=== PATIENT | female | born 1940 | race Caucasian/White ===

== ENCOUNTER 2020-01-05 08:16 | Day surgery (SDC) | payer MEDICARE ==
[2019-12-28 11:59] LABS: BASOPHILS % (AUTO) 0.2 % (0-1); EOSINOPHILS # (AUTO) 0.1 X10'3 (0-0.9); LYMPHOCYTES # (AUTO) 1.9 X10'3 (1.1-4.8); LYMPHOCYTES % (AUTO) 28.2 % (21-51); MEAN CORPUSCULAR HEMOGLOBIN 29.5 PG (27.0-31.0); MEAN CORPUSCULAR HGB CONC 33.1 g/dL (33.0-36.5); MEAN CORPUSCULAR VOLUME 89.1 FL (78-98); MEAN PLATELET VOLUME 8.1 FL (7.4-10.4); MONOCYTES # (AUTO) 0.6 X10'3 (0-0.9); MONOCYTES % (AUTO) 9.7 % (2-12); NEUTROPHILS # (AUTO) 3.9 X10'3 (1.8-7.7); NEUTROPHILS % (AUTO) 59.9 % (42-75); PRE OP HEMATOCRIT 39.2 % (35.0-45.0); PRE OP PLATELET COUNT 323 X10'3 (140-440); RED BLOOD COUNT 4.41 X10'6 (4.20-5.60); RED CELL DISTRIBUTION WIDTH 14.3 % (11.5-14.5)
[2019-12-28 12:03] LABS: CLARITY,URINE SLIGHTLY CLOUDY (Clear); COLOR,URINE STRAW (Yellow); GLUCOSE, URINE NEGATIVE (Neg); KETONES,URINE NEGATIVE (Neg); LEUKOCYTE ESTERASE ,URINE SMALL (Neg); NITRITES, URINE NEGATIVE (Neg); OCCULT BLOOD,URINE TRACE-INTACT (Neg); PH,URINE 5.5 (4.8-8.0); PROTEIN,URINE NEGATIVE (Neg); UROBILINOGEN,URINE 0.2 E.U/dL (0.2-1.0)
[2019-12-28 12:22] LABS: UA COLLECTION TYPE CLN CATCH MIDSTREAM
[2019-12-28 12:23] LABS: ALBUMIN 3.7 G/DL (3.4-5.0); ALBUMIN/GLOBULIN RATIO 1.1 (1.1-1.5); ALKALINE PHOSPHATASE 98 IU/L (46-116); BLOOD UREA NITROGEN 11 MG/DL (7-18); BUN/CREATININE RATIO 11.8 (6.6-38.0); CALCIUM 8.9 MG/DL (8.5-10.1); CHLORIDE 103 MMOL/L (99-107); CREATININE 0.93 MG/DL (0.40-0.90); PRE OP ALT 24 U/L (30-65); PRE OP ANION GAP 9 (8-16); PRE OP AST 23 U/L (10-37); PRE OP BILIRUB, TOTAL 0.7 MG/DL (0.0-1.0); PRE OP GLUCOSE 93 MG/DL (70-104); PRE OP POTASSIUM 3.4 MMOL/L (3.4-5.1); PRE OP SODIUM 142 MMOL/L (135-145); TOTAL CARBON DIOXIDE 30.3 MMOL/L (24-32); eGFR 58 ML/MIN
[2019-12-28 12:27] LABS: BACTERIA,URINE FEW /HPF (Neg); RBC,URINE 0-2 /HPF (0-2); SQUAMOUS EPITHELIAL CELL,UR MANY /LPF (FEW); TRANSITIONAL EPI CELLS,URINE FEW /HPF; WBC CLUMPS,URINE FEW /HPF (NEGATIVE); WBC,URINE 0-4 /HPF (0-4)
[2020-01-05] VITALS (11 sets, daily range): BP systolic 122–163; BP diastolic 62–87
[~2020-01-05] VITALS: Ht 170.2 cm; Wt 70.3 kg
[~2020-01-05 08:16] MED LIST: HCTZ25T PO; IRBE150T51 PO; LEVO100T9 PO; METO50TA7 PO; clindamycin-Cleocin 900mg/D5W 50 ML IV ONE; famotidine 20mg tablet PO ONE; gentamicin inj 350 MG in normal saline 100ml IV soln 91.25 ML IV ONE; ringers solution, lacted 1,000 ML IV SCH
[2020-01-05] MEDS ORDERED: aprepitant 40mg capsule PO ONE (11:53)
[2020-01-05] MEDS ORDERED: BUPIVAcaine/PF 2.5 mg/ml (0.25%) 30ml vial ONE (12:06)
[2020-01-05] MEDS ORDERED: sevoflurane 250ml liquid IH ONE (12:30)
[2020-01-05] MEDS ORDERED: fentaNYL/PF 50MCG/1 ML 2ML syringe ONE (12:36)
[2020-01-05] MEDS ORDERED: midazolam 2 mg/2 ml injection ONE (12:37)
[2020-01-05] MEDS ORDERED: morphine 2 MG/ML inj. syringe IV PRN (12:50)
[2020-01-05] MEDS ORDERED: proCHLORperazine 10 MG/2 ml inj IV PRN (12:50)
[2020-01-05] MEDS ORDERED: ondansetron/PF 4mg/2ml inj IV PRN (12:50)
[2020-01-05] MEDS ORDERED: ringers solution, lacted 1,000 ML IV SCH (12:50)
[2020-01-05] MEDS ORDERED: acetaminophen 1,000mg/100ml IV 100 ML IV PRN (12:50)
[2020-01-05] MEDS ORDERED: morphine 4 MG/ML inj SYRINge IV PRN (12:50)
[2020-01-05] MEDS ORDERED: meperidine/PF 25mg/ml syringe IV PRN ×3 (12:50)
[2020-01-05] MEDS ORDERED: LIDOcaine 1%/PF 5ML 10 MG/ML VIAL ONE (13:01)
[2020-01-05] MEDS ORDERED: ondansetron/PF 4mg/2ml inj ONE (13:01)
[2020-01-05] MEDS ORDERED: dexamethasone sod phosphate 4mg/ml inj. ONE (13:01)
[2020-01-05] MEDS ORDERED: propofol inj 20 ML IV ONE (13:01)
[2020-01-05] MEDS ORDERED: ePHEDrine 50MG/ML INJ. ONE (13:02)
[2020-01-05] MEDS ORDERED: 0.9 % SODIUM CHLORIDE 10 ML VIAL ONE (13:02)
--- NOTE | 2020-01-05 14:20 | NUR ---
Received from OR via [facility] , accompanied by Anesthesiologist KLAUDIA and report given by Anesthesiolgist. PATIENT WITH 20G PIV IN LEFT UE RUNNING LR AT 100. RIGHT AXILLARY DRESSING IS CDI. PATIENT WITH XIN DRAIN PRESENT WITH SEROSANGUENOUS DRAINAGE PRESENT. VSS Addendum: 01/05/20 at 1436 by Demetris Clemons RN, RN Amended: Links added.
--- NOTE | 2020-01-05 16:20 | NUR ---
D/C FROM PACU I HAVE REVIEWED D/C INSTRUCTIONS WITH PATIENT AND FAMILY AND THEY HAVE VERBALIZED UNDERSTANDING. PATIENT D/C HOME WITH ALL BELONGINGS AND FAMILY GAVE TRANSPORT HOME. AMBULATED, VOIDED AND STATES NAUSEA IS CONTROLLED. DRESSING MAINTAINING ITS CURRENT AMOUNT OF DRAINAGE Addendum: 01/05/20 at 1647 by Demetris Clemons RN, RN Amended: Links added.
== END 2020-01-05 16:20 | disposition home or self-care (01) ==
LOC: PAS 08:16
PROVIDERS: ATTEND Surgery
DX: R22.31 Localized swelling, mass and lump, right upper limb (principal); D17.21 Benign lipomatous neoplasm of skin and subcutaneous tissue of right arm; Z11.59 Encounter for screening for other viral diseases; I10 Essential (primary) hypertension; E78.5 Hyperlipidemia, unspecified; E20.9 Hypoparathyroidism, unspecified; Z98.890 Other specified postprocedural states; Z98.41 Cataract extraction status, right eye; Z98.42 Cataract extraction status, left eye; Z79.899 Other long term (current) drug therapy
CPT/HCPCS: 24071; 36415; 80053; 81001; 82948; 84443; 85025; 93005; J0780; J1100; J1580; J2250; J2405; J2704; J3010; J3490; J7120; J8501; U0003; A4618; A7000